=== PATIENT | male | born 1955 | race African-American/Black ===

== ENCOUNTER 2023-07-06 07:01 | Day surgery (SDC) | payer OTHER ==
[~2023-07-06] VITALS: Ht 182.9 cm; Wt 143.8 kg
[2023-07-06] VITALS (7 sets, daily range): BP systolic 141–175; BP diastolic 99–117; PULSE 60–62; RESP 13–20; TEMP 97.8; O2SAT 92–96
[~2023-07-06 07:01] MED LIST: ALBU108A5 IN; ATOR10TA PO; CHOL100079 OR; LISI20TA56 PO; METO-158 PO; MULT-1018 PO
[2023-07-06] MEDS ORDERED: LIDOCAINE 2%HCL (LOCAL ANESTH.) INJ 20ML MDV ONE (07:49)
[2023-07-06] MEDS ORDERED: IODIXANOL 320MG/ML 100ML BTL IV ONE (07:50)
[2023-07-06] MEDS ORDERED: MIDAZOLAM HCL 2MG/2ML 2ml VIAL (1mg/ml) ONE (07:57)
[2023-07-06] MEDS ORDERED: fentaNYL CITRATE 100 MCG/2 ML VL ONE (07:57)
[2023-07-06] MEDS ORDERED: ANGIOMAX 250 MG VIAL IV ONE (07:57)
[2023-07-06] MEDS ORDERED: SODIUM CHL 0.9% 0 ML ONE (07:57)
[2023-07-06] MEDS ORDERED: HEPARIN SODIUM (PORCINE) 5000 UNITS/ML 1ML VIAL ONE (07:58)
[2023-07-06] MEDS ORDERED: VERAPAMIL 2.5MG/ML INJ 2ML VIAL IV ONE (07:58)
[2023-07-06] MEDS ORDERED: amLODIPine BESYLATE 5 MG TAB PO ONE (10:15)
[2023-07-06] MEDS ORDERED: amLODIPine BESYLATE 5 MG TAB ONE (10:15)
== END 2023-07-06 11:30 | disposition home or self-care (01) ==
LOC: CATH 07:01
PROVIDERS: ATTEND Internal Medicine Cardiovascular Disease
DX: R94.39 Abnormal result of other cardiovascular function study (principal); I25.10 Atherosclerotic heart disease of native coronary artery without angina pectoris; R07.89 Other chest pain; I10 Essential (primary) hypertension; Z79.899 Other long term (current) drug therapy; Z98.890 Other specified postprocedural states; R06.09 Other forms of dyspnea; Z95.0 Presence of cardiac pacemaker; E66.01 Morbid (severe) obesity due to excess calories; E78.5 Hyperlipidemia, unspecified
CPT/HCPCS: 93458; C1725; C1894; J1644; J2250; J3010; J7030; Q9967; 99152

== ENCOUNTER → 2024-07-03 | Outpatient (CLI) | payer OTHER ==
[~2024-07-03] VITALS: Ht 188 cm; Wt 136.1 kg
[2024-07-03] MEDS: ADENOSINE 114 MG in GIVE UN-DILUTED 0 ML IV STA (09:57)
== END | disposition home or self-care (01) ==
LOC: XYW 08:38
PROVIDERS: ATTEND Specialist
DX: I10 Essential (primary) hypertension (principal); E78.5 Hyperlipidemia, unspecified; R55 Syncope and collapse; I25.10 Atherosclerotic heart disease of native coronary artery without angina pectoris
CPT/HCPCS: 78452; 93017; A9500; J0153